=== PATIENT | female | born 1965 | race Caucasian/White ===

== ENCOUNTER 2020-10-17 09:20 | Outpatient (NON) | payer OTHER, SELFPAY ==
[2020-10-17 20:00] LABS: SARS-CoV-2 RNA PCR Negative
== END 2020-10-17 09:21 ==
LOC: ANHCOVIDDT 09:24
PROVIDERS: Visit Provider Family Medicine
DX: Z20.828 Contact with and (suspected) exposure to other viral communicable diseases (principal); R05 Cough
CPT/HCPCS: 87635; C9803; U0003